=== PATIENT | male | born 1960 | race Caucasian/White ===

== ENCOUNTER 2016-08-17 07:55 | Observation (INO) | payer BC ==
[2016-08-17 08:33] LABS: Hematocrit 46 % (42-52); Hemoglobin 15.8 g/dl (14.0-18.0); Mean Corpuscular HGB Conc 34 g/dl (31-36); Mean Corpuscular Hemoglobin 31 pg (27-31); Mean Corpuscular Volume 90 fL (80-94); Mean Platelet Volume 8 um3 (7.4-10.4); Red Blood Count 5.13 10^6/ul (4.0-5.4); Red Cell Distribution Width 13 % (10.5-15); White Blood Count 4.3 10^3/ul (3.5-10.8)
[2016-08-17 08:44] LABS: Albumin 4.8 g/dL (3.2-5.2); BUN/Creatinine Ratio 16.7 (8-20); Calcium 9.4 mg/dL (8.6-10.3); EGFR African American 104.6 (>60); EGFR Non-African American 81.3 (>60); Globulin 2.5 g/dL (2-4); HDL Cholesterol 63.1 mg/dL; Potassium 3.9 mmol/L (3.5-5.0); Total Bilirubin 1.1 mg/dL (0.2-1.0); Total Protein 7.3 g/dL (6.4-8.9)
[2016-08-17 08:46] LABS: Troponin I 0.01 ng/mL (<0.04)
--- NOTE | 2016-08-17 08:53 | RAD ---
INDICATION: Aphasia COMPARISON: None. TECHNIQUE: Contiguous axial sections of the brain were obtained from the skull base to the vertex without contrast. FINDINGS: The ventricles, cisterns and sulci are within normal limits. There is mild periventricular and subcortical white matter hypoattenuation compatible with chronic microvascular disease. At the right posterior torrez radiata (image 20 of 32) there is a more focal 9 mm area of hypoattenuation. Otherwise the koehler-white matter differentiation is adequately maintained and there is no sulcal effacement. No significant focal abnormality or mass effect is present. There is no evidence for intracranial hemorrhage. No significant focal osseous abnormality is present. The visualized portion of the paranasal sinuses and mastoid air cells appear clear. IMPRESSION: CT findings are most compatible with microvascular disease as described in more detail above. If the patient is exhibiting focal neurologic deficit then superior characterization can be made with MRI of the brain.
--- NOTE | 2016-08-17 08:56 | RAD ---
INDICATION: Dysphasia COMPARISON: Chest x-ray dated May 11, 2005 TECHNIQUE: Single AP portable view of the chest was obtained. FINDINGS: Image quality is compromised due to the relative inferiority of a portable chest x-ray. The heart and mediastinum exhibit normal size and contour. The lungs are grossly clear. There is no evidence of a large pleural effusion. Visualized bones are normal for the patient's age. IMPRESSION: No radiographic evidence for acute cardiopulmonary abnormality on this portable chest x-ray.
[2016-08-17] MEDS ORDERED: Aspirin EC TAB* 325 MG PO ONE (11:02)
[2016-08-17] MEDS ORDERED: Iohexol 350* (CONTRAST) 500 ML MDV IV ONE (12:05)
--- NOTE | 2016-08-17 13:38 | RAD ---
CPT II: CPT II Codes: 3100F INDICATION: Expressive aphasia COMPARISON: CT of the brain dated August 17, 2016 TECHNIQUE: A CT angiogram of the head and neck was performed with 80 cc of Omnipaque 350. Contiguous axial sections were obtained from the thoracic inlet through the pamunkey of [place]. Images were reconstructed in the sagittal, coronal planes and in a 3-D volume rendered format. The distal cervical internal carotid artery diameter is used as the denominater for stenosis measurement. CTA NECK: The common and internal carotid arteries are patent without hemodynamically significant stenosis. Right: Just below the right carotid bulb the common carotid artery measures 6 mm in diameter and above the bifurcation the right internal carotid artery measures 7 mm in diameter indicating no significant stenosis. Incidentally noted is mild widening of the right carotid bulb up to 9 mm in short axis diameter. Left: Just below the bifurcation the left common carotid artery measures 5 mm in diameter and beyond the bifurcation the internal carotid artery measures 6 mm in diameter indicating no significant stenosis. There is widening of the carotid bulb up to 9 mm in short axis diameter. The vertebral arteries are patent without gross abnormality. The right vertebral artery is dominant. CTA of the brain: The internal carotid, anterior and middle cerebral arteries appear are patent without high grade stenosis or occlusion. The vertebral, basilar and posterior cerebral arteries appear patent without high grade stenosis or occlusion. The pamunkey of [place] is complete with bilateral posterior communicating arteries identified. No focal luminal filling defect, aneurysm or vascular malformation is seen. IMPRESSION: 1. No acute filling defect, high-grade stenosis or other acute abnormality involving the arteries of the head and neck. 2. Incidentally noted is mild widening of the left greater than right carotid bulbs which is of uncertain clinical significance.
--- NOTE | 2016-08-17 15:44 | HP ---
ADMISSION HISTORY AND PHYSICAL: DATE OF ADMISSION: 08/17/16 PRIMARY CARE PROVIDER: Dr. Matheus Ramirez ADMITTING PROVIDER: SELENE Beavers SUPERVISING PHYSICIAN: Sherlyn Jasmine MD.* (DICTATED BY SELENE BEAVERS) CONSULTING NEUROLOGIST: Aura Chaves MD CHIEF COMPLAINT: Right facial numbness and garbled speech. HISTORY OF PRESENT ILLNESS: This is an otherwise healthy 55-year-old gentleman who had a sudden onset of right facial numbness and garbled speech early this morning. 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 He was drinking some tea from a travel mug and found that he kept losing tea down the front of his shirt. He attempted to speak with the front window cashier, who noted that his speech was garbled. The patient denied any associated confusion. His students arrived several minutes later and stated that his speech was still garbled. No notable facial weakness. The patient denied any associated numbness, tingling, or weakness in any of his extremities. He did not trip, stumble, fall, or have associated headache or vision changes. The patient is an avid athlete, working out 5 days a week. He has had no history of similar symptoms. No history of migraine headaches. He has no family history of clotting or bleeding disorders or other heart disease or stroke. The patient reports his symptoms lasted approximately 20 to 30 minutes and he is asymptomatic at this time. About an hour ago, he did have a fleeting sensation of numbness in his right jaw region again, but no associated speech changes and his symptoms did not last any significant length of time. PAST MEDICAL HISTORY: None. PAST SURGICAL HISTORY: T12 kyphoplasty. HOME MEDICATIONS: Vitamin supplements, otherwise none. FAMILY HISTORY: The patient's mother is alive and well. Father of complications of asbestosis. Denies any family history of bleeding or clotting disorders, heart disease or stroke. 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 He has a disabled daughter who is currently attending college at [employer] and his is living with her to provide full-time care at the moment. Denies any smoking history and rare alcohol consumption. REVIEW OF SYSTEMS: All negative as noted above in HPI. PHYSICAL EXAMINATION GENERAL: This is an extremely pleasant 55-year-old gentleman lying comfortably on a hospital bed in no acute distress. INITIAL VITAL SIGNS: Temperature 97.6 degrees Fahrenheit, pulse 53 beats per minute, respiratory rate 15 per minute, oxygen saturation 100% on room air, and blood pressure 142/86 mmHg. HEENT: Head is normocephalic, atraumatic, with moist mucous membranes. NECK: Neck is free of lymphadenopathy and supple. No JVD appreciated. RESPIRATORY: Lungs are clear to auscultation without wheezes, crackles, or rhonchi. CARDIOVASCULAR: Heart has a regular rate and rhythm without murmurs, rubs, or gallops. ABDOMEN: Abdomen is soft and nontender to palpation. NEUROLOGIC: Cranial nerves II through XII are intact. Strength in all 4 extremities is 5/5. Romberg negative. Normal [id number] stress testing and rapid alternating movements. Sensation is grossly intact. PSYCH: The patient is alert and appropriately oriented. LABORATORY EVALUATION: CBC shows a white blood cell count of 4300, hemoglobin 15.8 g/dL, and a platelet count of 181,000. INR is 0.98. Comprehensive metabolic panel shows normal sodium of 137 mmol/L, potassium 3.9 mmol/L, BUN 16 , creatinine is 0.96. Random glucose of 104 mg/dL. Transaminases and total bilirubin are within normal limits. Troponin negative at 0.01. Total cholesterol 161, triglycerides 50, LDL 88, and HDL of 63. IMAGING: EKG shows a normal sinus rhythm, somewhat large T waves in lateral precordial leads, but this is consistent with his last EKG from 2011. No other ischemic changes appreciated. CT of the brain shows some evidence of microvascular disease, but no other acute findings. There is an area of hypoattenuation in the right posterior torrez radiata that appears to be more focal than the other regions indicated. Chest x-ray shows no acute disease. ASSESSMENT AND PLAN: This is an otherwise healthy and extremely athletic 55- year- old gentleman who presents with sudden onset of right facial numbness and garbled speech. He is being admitted to observation status for concern of a transient ischemic attack. 1. Transient ischemic attack - the patient's initial CT is negative for any acute findings, but does show some evidence of perhaps microvascular disease, which is surprising given his level of fitness. The patient received an aspirin and will be continued on daily 81 mg at this time and initiate a statin. We will check a fasting lipid panel tomorrow morning. Transthoracic echocardiogram has been ordered along with a CTA of the head and neck and MRI of the brain. Neurologist, Dr. Chaves, has been consulted and will evaluate the patient later. He is currently asymptomatic. 2. Code status. The patient is a full code. 3. Healthcare proxy is his . 4. DVT prophylaxis. The patient is at low to moderate risk for DVT with concern for acute neurologic deficit. We will avoid any chemical prophylaxis at this time, but we will order SCDs during his hospital stay. Anticipate discharge tomorrow. SELENE BEAVERS CC: Dr. Matheus Ramirez* [id number]/[facility] #: [id number] BERT
[2016-08-17] MEDS: Atorvastatin* 40 MG TAB PO SCH (17:15)
--- NOTE | 2016-08-17 18:15 | PN ---
Hospitalist Progress Note HOSPITALIST ADDENDUM Case reviewed and d/w Asael MORTON. Mr. Goins is a 55yo healthy M who presented to ED with right facial weakness, slurred speech. Labs, EKG, CT brain reviewed. Plan for Neuro consult and TIA w/u. Agree with current management.
--- NOTE | 2016-08-17 23:39 | CONS ---
CC: Matheus Ramirez MD NEUROLOGY CONSULTATION: DATE OF CONSULT: 08/17/16 LOCATION: The patient is an inpatient. PRIMARY CARE PHYSICIAN: Matheus Ramirez MD REQUESTING PROVIDER: Dr. Avila in the emergency department. REASON FOR CONSULT: Possible TIA. HISTORY OF PRESENT ILLNESS: Niranjan Goins is a 55-year-old healthy man on no medications who was in his usual state of health until approximately 6:40 this morning when he was driving to [place] and noticed that the right lower face felt numb as though he has had Novocain injected. He was also dribbling tea that he was drinking from a travel mug from the right corner of his mouth. This symptom lasted approximately 10 or 15 minutes and when he arrived at [place], he tried to say good morning to the front desk manager and the words did not come out correctly. 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 She was present during my evaluation and described his speech as sometimes nonsense speech that was completely garbled and other times it appeared that he was trying to speak and nothing was coming out. He was fully aware during this episode and frustrated and anxious about his symptoms. His speech returned to normal and he was able to recite the alphabet and count to 20, but as he and his student were googling his symptoms, they became concerned about stroke and she brought him to the emergency department. He denies any focal weakness, vertigo, tingling, or vision changes with this episode. Around noon today, he had recurrence of right lower facial numbness, but in a bigger area which encompassed beneath his jaw on the right and somewhat into the cheek. This lasted for approximately 10 or 15 minutes and he had no speech difficulties during this time. He has never had similar symptoms in the past. Once he got to the emergency department, he did develop somewhat of a headache, which he describes as being all over his head and involving his neck as well. There were no migrainous features to his headache and he specifically denies any photophobia, ponophobia , nausea, or vomiting. This headache resolved without any intervention and he attributes it to being anxious about his symptoms. He does not typically get headaches. PAST MEDICAL HISTORY: No significant history. PAST SURGICAL HISTORY: T12 kyphoplasty. HOME MEDICATIONS: Vitamins. FAMILY HISTORY: There is no history of heart disease or stroke in his family. SOCIAL HISTORY: He is a nonsmoker, nondrinker, and does not use any illicit drugs. 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 REVIEW OF SYSTEMS: Otherwise negative aside from the HPI. PHYSICAL EXAMINATION: Vital Signs: Temperature 97.4, blood pressure 96/67. Blood pressure was 142/86 upon his arrival. Heart rate is 55 and oxygen saturation is 99% on room air. On general examination, he is a thin, well-appearing man, in no acute distress. Heart revealed a regular rate and rhythm with no murmurs, rubs, or gallops. Lungs are clear to auscultation bilaterally. There are no carotid bruits. On neurologic testing, his speech is clear without any dysarthria or aphasia. He is able to describe the [employer] picture accurately. Reading and naming is intact. He is fully awake, alert and oriented. On cranial nerve testing, pupils were equal, round, and reactive from 4 to 2 mm bilaterally. The fundi are benign. Versions were full without nystagmus. Visual sosa are full to confrontation. Facial sensation and musculature is full and symmetric. Hearing is intact to finger rub. The palate elevates symmetrically and the tongue is midline. Shoulder shrug is full and symmetric. On motor testing, there is normal bulk and tone in the upper and lower extremities. Strength is full both proximally and distally. There is no pronator drift. Sensation is intact to light touch and temperature in the upper and lower extremities. There is no ataxia on oxzdxy-nk-eaqt and heel-to- crawford testing. Reflexes are 2+ in the upper and lower extremities with downgoing toes bilaterally. Romberg testing is negative. His gait is narrow based and stable. He is able to heel toe and tandem walk. LABORATORY DATA/DIAGNOSTIC STUDIES: Laboratory studies reviewed, include a CMP that was notable for glucose of 112 at 8 o'clock this morning and a total bilirubin of 1.10. Cholesterol panel shows triglycerides of 50, total cholesterol 161, LDL of 88, and HDL of 63.1. CBC was essentially unremarkable and coagulation studies were normal. Brain CT was personally reviewed and to my eye, it was essentially normal, though the formal interpretation was that there were some mild small vessel ischemic changes and potentially an area of greater hypodensity in the right posterior torrez radiata. CT angiogram of the head and neck was also personally reviewed and shows no evidence of atherosclerosis, stenosis or occlusion. Formal report mentions some widening (mild) of the carotid bulbs bilaterally of uncertain clinical significance. IMPRESSION: Niranjan Goins is a 55-year-old healthy man who presented with sudden and transient symptoms of right lower facial numbness as well as aphasia , which may have been primarily an expressive aphasia but this is not entirely clear by the description. He then had a recurrent episode of lower right facial numbness once here at the hospital, but this self-resolved. The differential for these transient neurologic symptoms would include transient ischemic attack, migraine headache as well as seizure. The patient has no significant risk factors for any of these and does not endorse a past history of migraine headaches or previous aura symptoms such as a typical visual aura. Furthermore, he was fully aware during the episode, making seizure less likely as well. He is currently undergoing a workup for transient ischemic attack and thus far his workup has included a CT of the brain as well as CTA of the head and neck, which has been negative. He received an aspirin in the emergency department and will be continued on 81 mg at this time. He was also started a statin given that his LDL is greater than 70. Transthoracic echocardiogram is pending and the patient will continue to be monitored on telemetry for any signs of paroxysmal atrial fibrillation. If the above testing is unremarkable, as an outpatient one may want to consider an implantable loop recorder versus hypercoagulable workup in this otherwise healthy patient without any significant risk factors for transient ischemic attack or stroke. He should also have MRI of the brain. Thank you for this consultation. I will follow up on the patient's testing tomorrow. [id number]/[facility] #: [id number] BERT
[2016-08-18] MEDS ORDERED: Aspirin EC Low Dose* 81 MG TAB.EC PO SCH (09:00)
--- NOTE | 2016-08-18 14:13 | PN ---
Subjective Date of Service: 08/18/16 Interval History: Patient reports he has been back to his baseline since before he arrived to the ED and has not sears d a return of symptoms. He reports he has what he thinks was an abscess on his right upper gum starting 1-2 weeks ago and popped last night and drained some fluid. He denies fever or chills. mild tenderness to area, today feeling better. No family hx of clotting disorders or CVA that he is aware of. Objective Active Medications: Aspirin (Aspirin Ec Low Dose*) 81 mg PO DAILY [facility] Last Admin: 08/18/16 08:14 Dose: 81 mg Atorvastatin Calcium (Lipitor*) 40 mg PO 1700 [facility] Last Admin: 08/17/16 17:15 Dose: 40 mg Vital Signs 08/17/16 08/17/16 08/17/16 15:20 19:34 20:00 Temperature 97.4 F 97.8 F Pulse Rate 55 56 Respiratory 16 14 Rate Blood Pressure 96/67 107/72 (mmHg) O2 Sat by Pulse 99 97 97 Oximetry 08/17/16 08/18/16 08/18/16 23:58 03:33 06:46 Temperature 98.1 F 97.8 F Pulse Rate 51 46 Respiratory 16 16 16 Rate Blood Pressure 100/63 95/57 (mmHg) O2 Sat by Pulse 97 98 Oximetry 08/18/16 08/18/16 07:26 11:15 Temperature 97.8 F 97.5 F Pulse Rate 52 52 Respiratory 16 16 Rate Blood Pressure 102/62 99/64 (mmHg) O2 Sat by Pulse 96 99 Oximetry Oxygen Devices in Use Now: None Appearance: healthy appearing 55 yo male sitting up in bed in [facility]. A+O x3 Eyes: No Scleral Icterus Ears/Nose/Mouth/Throat: - - upper right gum above canine toothe is a small .5 cm area of erythema, soft, slightly tender, no exudate or abscess noted Neck: NL Appearance and Movements; NL JVP Respiratory: Symmetrical Chest Expansion and Respiratory Effort, Clear to Auscultation Cardiovascular: NL Sounds; No Murmurs; No JVD, RRR, No Edema Abdominal: NL Sounds; No Tenderness; No Distention Extremities: No Edema, No Clubbing, Cyanosis Skin: No Rash or Ulcers, No Nodules or Sclerosis Neurological: Alert and Oriented x 3, NL Sensation, NL Gait, NL Muscle Strength and Tone, - - no pronator drift, tongue is midline, 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 Lines/Tubes/Other Access: Clean, Dry and Intact Peripheral IV Result Diagrams: 08/17/16 08:09 08/17/16 08:09 Assess/Plan/Problems-Billing Assessment: Mr. rutherford is a 55 yo male with no significant hx who presented with sudden onset of right facial numbness and garbled speech admitted for TIA - Patient Problems (1) TIA (transient ischemic attack) Comment: Pts symptoms resolved quickly after initial episode yesterday and have not returned. TTE with positive bubble study for PFO CT Brain finding compatible with microvascular disease MRI Brain showing no acute infarct but is showing small vessel disease CTA Head/Neck no acute filling defect, high-grade stenosis or other acute abnormal pathology - Due to found PFO, plan for Doppler b/l LE, CT pelvis venogram Dr. Chaves, neurology following, plan for ASA 325 mg daily for now. (2) Tooth abscess Comment: - right upper above canine tooth - appears to be resolving. Afebrile, no leukocytosis. No abx recommended at this time. Start chlorhexidine mouthwash. F/u with dentist (3) Full code status (4) DVT prophylaxis Comment: HSQ Status and Disposition: OBV for TIA work-up requires further testing due to found PFO, Plan for DC tomorrow.
[2016-08-18 14:52] LABS: Urine Bilirubin Negative (Negative); Urine Glucose Negative (Negative); Urine Nitrite Negative (Negative)
--- NOTE | 2016-08-18 16:15 | RAD ---
HISTORY: 30 minutes of facial numbness and slurred speech the previous day COMPARISONS: CTA of the head and neck and CT of the brain from the previous day TECHNIQUE: The following sequences were obtained of the head: Sagittal T1-weighted images, axial T2-weighted images, axial FLAIR images, axial susceptibility weighted images, axial T1-weighted images. Additionally, axial diffusion-weighted images were obtained with calculated apparent diffusion coefficients.. FINDINGS: HEMORRHAGE/INFARCT: There is no hemorrhage or acute infarct. MASSES/SHIFT: There is no mass or shift. EXTRA-AXIAL SPACES/MENINGES: There are no extra-axial fluid collections. SULCI AND VENTRICLES: The sulci and ventricles are normal in size and position for the patient's stated age. CEREBRUM: There is a mild increased T2 signal in the periventricular and subcortical white matter tracts, the largest at the posterior right parietal lobe measuring 7 mm in diameter (image 20 of 32). The koehler-white matter differentiation is otherwise adequately maintained and there are no other focal masses or lesions. BRAINSTEM: There are no focal parenchymal abnormalities. CEREBELLUM: There are no focal parenchymal abnormalities. The cerebellar tonsils are normal in size and position. SELLA: The sella is normal. PINEAL: The pineal region is clear. CP ANGLE/TEMPORAL BONES: The labyrinthine structures are grossly normal. VESSELS: Normal flow-voids are noted within the visualized vertebral vasculature. DIFFUSION ABNORMALITIES: There are no diffusion abnormalities. PARANASAL SINUSES/MASTOIDS: The paranasal sinuses are clear. ORBITS: The orbits are unremarkable. BONES AND SOFT TISSUE: No bone or soft tissue abnormalities are noted. IMPRESSION: MRI FINDINGS DESCRIBED ABOVE ARE MOST COMPATIBLE WITH SUBCORTICAL AND PERIVENTRICULAR MICROVASCULAR DISEASE. LESS LIKELY ETIOLOGY INCLUDES DEMYELINATING DISEASE. IF THE LATTER CORRELATES WITH THE PATIENT'S CLINICAL PRESENTATION THEN FURTHER CHARACTERIZATION CAN BE MADE WITH CONTRAST-ENHANCED MRI OF THE BRAIN.
[2016-08-18] MEDS ORDERED: Chlorhexidine MOUTHWASH 0.12%* 15 ML UDC SWISH SPIT SCH (17:00)
[2016-08-18] MEDS: Atorvastatin* 40 MG TAB PO SCH (17:02)
[2016-08-18] MEDS ORDERED: Iohexol 300* (CONTRAST) 10 ML SDV IV SCH (17:03)
--- NOTE | 2016-08-18 19:05 | RAD ---
HISTORY: Transient ischemic attack and a patient with patent foramina ovale. TECHNIQUE: Multiple transverse and longitudinal ultrasound images were obtained of the veins of the bilateral lower extremities using grayscale, color Doppler, and spectral Doppler imaging with and without compression and with augmentation. FINDINGS: VEINS: The common femoral vein, deep femoral vein, femoral vein and popliteal vein are compressible throughout their course, with normal flow on color Doppler imaging and normal response to augmentation on spectral Doppler imaging. SOFT TISSUES: Grossly normal. No large popliteal fossa cyst was identified. IMPRESSION: No sonographic evidence of deep vein thrombosis.
--- NOTE | 2016-08-18 20:10 | RAD ---
CLINICAL HISTORY: Clinical concern for DVT in a patient with patent foramen ovale COMPARISON: None TECHNIQUE: Multiple contiguous axial CT scans were obtained of the abdomen and pelvis after the administration of intravenous contrast. Coronal and sagittal multiplanar reformations are submitted for review. Patient received 100 mL Omnipaque 300. FINDINGS: The visualized portions of the solid abdominal organs are grossly normal in appearance. The visualized portions of the kidneys are normal in appearance without focal mass, calcification or signs of hydronephrosis. The visualized segments of small and large bowel are not distended. There is no gross retroperitoneal or mesenteric lymphadenopathy in the visualized portions of the abdomen. Coarse calcification is noted the prostate gland. Incidentally noted are vessel ectomy surgical clips. The lower abdominal aorta is normal in course and diameter. The arterial and venous structures of the pelvis and upper thighs are normal in size and morphology. There is no definite filling defect of the bilateral iliac veins or visualized lower IVC. Degenerative changes of the lower lumbar spine includes loss of intervertebral disc height. . There are no sinister bone lesions in the visualized bones. IMPRESSION: Inadequate bolus timing thoroughly evaluates the iliac veins but there does not appear to be any obvious filling defect of the iliac veins or lower IVC. If there is strong clinical concern for pelvic DVT then MR venography is advised.
[2016-08-18] MEDS: Heparin VIAL(*) 5000 UNITS/ML VIAL (FIVE THOUSAND) SUBCUT SCH (20:23)
--- NOTE | 2016-08-18 22:20 | ED ---
Fre[facility] Rebecca, scribed for Faustino Avila MD on 08/17/16 at 0819 . Neurological HPI - HPI Summary HPI Summary: Pt is a 55 y/o M who presents to ED c/o lip numbness and slurred speech. Left lower lip numbness began suddenly at 0630 this morning, when pt noticed he "dribbled" his tea. Slurred speech began suddenly at 0700. Numbness lasted for 20 minutes and speech deficit lasted for 10 minutes. Guest states that "he was trying to talk to me and words weren't coming out and he looked really surprised." Then, he was "able to say something but it was garbled." Sx alleviated by spontaneous resolution, aggravated by nothing. All sx have currently resolved. Additionally c/o mild anxiety and diaphoresis. Denies bilateral UE or LE weakness, facial rash, facial droop, blurry vision, DIAZ, CP, SOB. States that this morning hadn't been particularly stressful, but he was anticipating a new bus trip about an hour away. Last physical was in July 2016. Reports that he has not eaten breakfast today, and that he had a full dinner last night. No PMHx hypoglycemia. No FHx TIA or HTN. FHx asbestosis ( father in 70's). Siblings have no health problems. SHx no smoking or drinking. Exercises 5x/week. - History of Current Complaint Stated Complaint: STROKE LIKE SYMPTOMS Time Seen by Provider: 08/17/16 07:58 Hx Obtained From: Patient Onset/Duration: Sudden Onset, Resolved Timing: Intermittent Episodes Lasting: - 10 minutes (speech), 20 minutes ( numbness) Current Severity: None Pain Intensity: 0 Pain Scale Used: 0-10 Numeric Character: Numbness/Tingling - left lower lip Aggravating: Nothing Alleviating: Spontanious Resolution Associated Signs and Symptoms: Positive: Impaired Speech - "garbled," resolved, Diaphoresis, Anxiety - mild. Negative: Headache, Weakness, Chest Pain, Shortness of Breath - Allergy/Home Medications Allergies/Adverse Reactions: Allergies Allergy/AdvReac Type Severity Reaction Status Date / Time No Known Allergies Allergy Unverified 12/29/12 09:01 PMH/Surg Hx/FS Hx/Imm Hx Previously Healthy: Yes Endocrine/Hematology History: Denies: Hx Diabetes, Hx Thyroid Disease Cardiovascular History: Denies: Hx Hypercholesterolemia, Hx Hypertension, Hx Peripheral Vascular Disease Musculoskeletal History: Denies: Hx Arthritis, Hx Rheumatoid Arthritis, Hx Osteoporosis Sensory History: Denies: Hx Cataracts, Hx Contacts or Glasses, Hx Glaucoma Opthamlomology History: Denies: Hx Cataracts, Hx Contacts or Glasses, Hx Glaucoma Neurological History: Denies: Hx Headaches, Hx Seizures, Hx Transient Ischemic Attacks (TIA) Psychiatric History: Denies: Hx Anxiety, Hx Depression - Surgical History Surgery Procedure, Year, and Place: T12 2004 Infectious Disease History: No Infectious Disease History: Denies: Traveled Outside the [place] in Last 30 Days - Family History Known Family History: Positive: Respiratory Disease - Asbestosis (father), Other - Negative for TIA Negative: Hypertension - Social History 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 Negative: Fever, Chills Negative: Blurred Vision, Erythema Negative: Sore Throat Negative: Chest Pain Negative: Shortness Of Breath, Cough Negative: Abdominal Pain, Vomiting, Nausea Negative: dysuria, hematuria Negative: Myalgia, Edema Negative: Rash Neurological: Other - Denies dizziness and slurred speech Positive: Numbness - Left lower lip, resolved, Slurred Speech - "Garbled," resolved. Negative: Headache, Weakness - UE or LE Positive: Anxious - mild All Other Systems Reviewed And Are Negative: Yes Physical Exam - Summary Physical Exam Summary: Constitutional: Well-developed, Well-nourished, Alert. (-) Distressed Skin: Warm, Dry HENT: Eyes: Conjunctiva normal Neck: Musculoskeletal ROM normal neck. (-) JVD, (-) Stridor, (-) Tracheal deviation Cardio: Rhythm regular, rate normal, Heart sounds normal; Intact distal pulses ; The pedal pulses are 2+ and symmetric. Radial pulses are 2+ and symmetric. (- ) Murmur Pulmonary/Chest wall: Effort normal. (-) Respiratory distress, (-) Wheezes, (-) Rales Abd: Soft. (-) Tenderness, (-) Distension, (-) Guarding, (-) Rebound Musculoskeletal: (-) Edema Lymph: (-) Cervical adenopathy Neuro: Alert, Oriented x3, Strength normal, Cranial nerves II-XII are grossly intact. (-) Dysmetria, (-) Nystagmus, (-) Ataxia by finger to nose testing, (-) Sensory deficit. Psych: Mood and affect Normal Triage Information Reviewed: Yes Vital Signs Reviewed: Yes Diagnostics - Laboratory Result Diagrams: 08/17/16 08:09 08/17/16 08:09 Lab Statement: Any lab studies that have been ordered have been reviewed, and results considered in the medical decision making process. - Radiology CXR Xray Interpretation: No Acute Changes - No radiographic evidence for acute cardiopulmonary abnormality on this portable chest x-ray. Radiology Interpretation Completed By: Radiologist - CT Brain CT CT Interpretation Completed By: Radiologist - CT findings are most compatible with microvascular disease as described in more detail above. If the patient is exhibiting focal neurologic deficit then superior characterization can be made with MRI of the brain. - EKG 0801 Cardiac Rate: Bradycardia - 52 bpm EKG Rhythm: Sinus Bradycardia EKG Interpretation: No STEMI Re-Evaluation - Re-Evaluation First Eval Re-Evaluation Time: 09:36 Change: Improved Comment: Discussed admission plan with pt. Course/Dx - Course Assessment/Plan: Pt is a 55 y/o M with a CC of lip numbness and speech aphasia. Both sx are resolved, with numbness lasting 20 minutes and aphasia lasting 10 minutes. Additionally c/o mild anxiety and diaphoresis. Denies bilateral UE or LE weakness, facial rash, facial droop, blurry vision, DIAZ, CP, SOB. CXR reveals no acute findings. CT brain reveals: "CT findings are most compatible with microvascular disease as described in more detail above. If the patient is exhibiting focal neurologic deficit then superior characterization can be made with MRI of the brain." Discussed care of pt with Dr. Steiner, hospitalist, who accepts pt for admission. Pt will be admitted with a dx of TIA. - Diagnoses Provider Diagnoses: TIA (transient ischemic attack) - Physician Notifications Discussed Care of Patient With: Dr. Steiner, who accepts pt for admission. Dr. Chaves, neurologist, at 0940 who will evaluate pt in the ED. Time Discussed With Above Provider: 09:36 Discharge - Discharge Plan Condition: Good Disposition: ADMITTED TO [facility] documentation as recorded by the scribe, DiFabio,Marni accurately reflects the service I personally performed and the decisions made by me, Faustino Avila MD.
--- NOTE | 2016-08-18 23:15 | PN ---
PROGRESS REPORT: DATE OF SERVICE: 08/18/16 - ROOM #434 OVERNIGHT EVENTS: Mr. Goins has experienced no recurrence of right facial numbness or difficulty with his speech. He underwent echocardiogram today as well as MRI of the brain. 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 MEDICATIONS: 1. Aspirin 325 mg daily. 2. Lipitor 40 mg daily. 3. Heparin 5000 units q.12 hours. PHYSICAL EXAMINATION:Vital Signs: Temperature 97.6, blood pressure 106/65, heart rate 47, oxygen saturation 98%. On general examination, he is in no acute distress. His speech is fluent without aphasia or dysarthria. Versions are full without nystagmus. Visual sosa are full to confrontation. Facial musculature and sensation is full and symmetric. Tongue protrudes in the midline and the palate elevates symmetrically. On motor examination, there is full strength in the upper and lower extremities with no pronator drift. Sensation is intact to light touch in the upper and lower extremities. There is no ataxia on [id number]. His gait is narrow based and stable. DATA: Cholesterol studies were redone today and show triglycerides of 49, total cholesterol of 122, LDL of 62, and HDL of 50. Transthoracic echocardiogram showed ejection fraction of 50% to 55%, mildly dilated right atrium. There is a patent foramen ovale demonstrated by bubble study. There is also evidence of an atrial septal aneurysm. MRI of the brain was personally reviewed and shows a few punctate areas of hyperintensity and the bilateral cerebral white matter with the largest area being in the right parietal region. These do not have the typical distribution of demyelinating disease and appear more consistent with small vessel ischemic changes. There are no acute changes on DWI. IMPRESSION: Niranjan Goins is a 55-year-old healthy man who presented with transient episode of right facial numbness as well as aphasia. His workup has been notable for a patent foramen ovale on echocardiogram and evidence of small vessel ischemic disease on his MRI, but no acute changes. Given the presence of the patent foramen ovale, he will undergo lower extremity Dopplers today. If those are negative, he should undergo CT venogram of the pelvis to assess for any thrombus in the deep veins of the pelvis. If both these studies are negative, he can be discharged on his full dose aspirin to follow up with me as an outpatient. As an outpatient, I want to obtain a hypercoagulable workup as well as followup MRI with gadolinium to ensure none of his abnormalities are enhancing. [id number]/[facility] #: [id number] BERT
[2016-08-19] MEDS: Heparin VIAL(*) 5000 UNITS/ML VIAL (FIVE THOUSAND) SUBCUT SCH (07:44)
[2016-08-19 07:59] VITALS: BP 102/60
[2016-08-19] MEDS ORDERED: Aspirin EC TAB* 325 MG PO SCH (09:00)
--- NOTE | 2016-08-19 10:21 | PN ---
Subjective Date of Service: 08/19/16 Interval History: pt reports "I feel great" he is at his baseline no return of symptoms. Reviewed discharge instructions with pt. Objective Active Medications: Aspirin (Ecotrin Ec Tab*) 325 mg PO DAILY [facility] Last Admin: 08/19/16 07:44 Dose: 325 mg Atorvastatin Calcium (Lipitor*) 40 mg PO 1700 [facility] Last Admin: 08/18/16 17:02 Dose: 40 mg Heparin Sodium (Porcine) (Heparin Vial(*)) 5,000 units SUBCUT Q12HR [facility] Last Admin: 08/19/16 07:44 Dose: 5,000 units Iohexol (Omnipaque 300* (Contrast)) 99 ml IV ONCE [facility] Stop: 08/20/16 23:59 Last Admin: 08/18/16 18:06 Dose: 99 ml Vital Signs 08/18/16 08/18/16 08/18/16 11:15 16:08 20:00 Temperature 97.5 F 97.6 F Pulse Rate 52 47 Respiratory 16 14 16 Rate Blood Pressure 99/64 106/65 (mmHg) O2 Sat by Pulse 99 98 Oximetry 08/18/16 08/18/16 08/19/16 20:51 23:15 03:20 Temperature 97.2 F 97.6 F 98.7 F Pulse Rate 49 45 53 Respiratory 14 16 16 Rate Blood Pressure 107/61 106/62 98/57 (mmHg) O2 Sat by Pulse 98 98 98 Oximetry 08/19/16 08/19/16 07:31 08:00 Temperature 97.7 F Pulse Rate 48 Respiratory 14 Rate Blood Pressure 102/60 (mmHg) O2 Sat by Pulse 97 97 Oximetry Oxygen Devices in Use Now: None Appearance: A+O x3 in NAD. healthy appearing 55 yo male Eyes: No Scleral Icterus, PERRLA Ears/Nose/Mouth/Throat: NL Teeth, Lips, Gums, Mucous Membranes Moist Neck: NL Appearance and Movements; NL JVP Respiratory: Symmetrical Chest Expansion and Respiratory Effort, Clear to Auscultation Cardiovascular: NL Sounds; No Murmurs; No JVD, RRR, No Edema Abdominal: NL Sounds; No Tenderness; No Distention Lymphatic: No Cervical Adenopathy Extremities: No Edema, No Clubbing, Cyanosis Skin: No Rash or Ulcers, No Nodules or Sclerosis Neurological: Alert and Oriented x 3, NL Sensation, NL Gait, NL Muscle Strength and Tone Lines/Tubes/Other Access: Clean, Dry and Intact Peripheral IV Nutrition: Taking PO's Result Diagrams: 08/17/16 08:09 08/17/16 08:09 Assess/Plan/Problems-Billing Assessment: Mr. rutherford is a 55 yo male with no significant hx who presented with sudden onset of right facial numbness and garbled speech admitted for TIA - Patient Problems (1) TIA (transient ischemic attack) Comment: Pts symptoms resolved quickly after initial episode yesterday and have not returned. TTE with positive bubble study for PFO CT Brain finding compatible with microvascular disease MRI Brain showing no acute infarct but is showing small vessel disease CTA Head/Neck no acute filling defect, high-grade stenosis or other acute abnormal pathology - Due to found PFO, Doppler b/l LE negative, CT pelvis venogram negative for DVTs Dr. Chaves, neurology following, plan for ASA 325 mg daily for now and f/u with Dr. Chaves as outpt (2) Tooth abscess Comment: - improving - right upper above canine tooth - appears to be resolving. Afebrile, no leukocytosis. No abx recommended at this time. continue chlorhexidine mouthwash. F/u with dentist (3) Full code status (4) DVT prophylaxis Comment: HSQ Status and Disposition: OBV for TIA found PFO, Plan for DC today
--- NOTE | 2016-08-19 22:47 | DS ---
DISCHARGE SUMMARY: DATE OF ADMISSION: 08/17/16 DATE OF DISCHARGE: 08/19/16 PROVIDER: Reagan Michaels NP ATTENDING PHYSICIAN: Dr. Mars* (report dictated by Reagan Michaels NP). PRIMARY CARE PROVIDER: Dr. Matheus Ramirez. NEUROLOGIST: Dr. Chaves. PRIMARY DIAGNOSES: 1. Transient ischemic attack. 2. Newly found patent foramen ovale. HISTORY OF PRESENT ILLNESS AND HOSPITAL COURSE: Please see history and physical by SELENE Ahuja for full admission details, but in summary, this is a healthy 55- year-old male who presented to the emergency department on 05/23 with a report of acute onset of right facial numbness and garbled speech earlier in the day. 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 He denied any confusion, headache, extremity weakness, numbness, or tingling. No noted facial weakness. Reported he had a steady gait. These symptoms lasted approximately 20 to 30 minutes and then resolved. He decided to come to the emergency department for evaluation. The patient was admitted to the hospitalist service for TIA/CVA workup. The patient underwent a brain CT, which reading "CT findings are most compatible with microvascular disease." As well, the patient underwent a brain MRI, which showed "MRI findings described above are most compatible with subcortical and periventricular microvascular disease, less likely etiology includes demyelinating disease. If the latter correlates with the patient's clinical presentation, then further characterization can be made with the contrast enhanced MRI of the brain." The patient has been followed by Dr. Chaves, neurologist, who reviewed the MRI. He does not think that this is demyelinating disease, but does appear to be small vessel disease and with no acute findings of stroke. The patient underwent an transthoracic echocardiogram , which showed patent foramen ovale, just need with the corporate compliance manager's report that were "large bubbles noted". He reports that there is no surgical intervention and that the neurologist should determine if he should be on full dose aspirin versus anticoagulation. The patient then underwent a CT venogram of his pelvis, which was negative for DVTs as well as lower extremity Dopplers, which were negative for DVTs. The plan is to send the patient on a full dose aspirin of 325. Dr. Chaves will continue to follow the patient as an outpatient and schedule him for outpatient MRI. He will undergo hypercoagulable workup. It is okay for the patient to return to exercise and to normal routine. The patient was monitored on telemetry throughout hospitalization with no noted atrial fibrillation. The patient should be setup for Holter monitoring and I discussed with him that it is possible he could benefit from a loop monitor, the Holter monitor was negative. This should be discussed with the primary and the neurologist to determine the best course for the patient. DISCHARGE PLAN: 1. The patient is stable for discharge home. 2. Dr. Chaves's office will call the patient with followup appointment. 3. The patient should follow up with Dr. Matheus Ramirez within 3 to 5 days. 4. May return to daily routine. TIME SPENT: Approximately 60 minutes were spent on this discharge. REAGAN MICHAELS NP CC: Dr. Matheus Ramirez * [id number]/[facility] #: [id number] MTDJerri
== END 2016-08-19 11:33 | disposition home or self-care (01) ==
LOC: ED 07:55 → MEDTELE 09:35
PROVIDERS: ADMIT Internal Medicine; ATTEND Internal Medicine
DX: G45.9 Transient cerebral ischemic attack, unspecified (principal); Q21.1 Atrial septal defect; K04.7 Periapical abscess without sinus; R00.1 Bradycardia, unspecified; I34.0 Nonrheumatic mitral (valve) insufficiency; Z79.899 Other long term (current) drug therapy; R20.0 Anesthesia of skin; R29.810 Facial weakness
CPT/HCPCS: 36415; 70450; 70496; 70498; 70551; 71010; 72193; 80053; 80061; 81003; 83605; 84484; 85025; 85610; 85730; 86850; 86900; 86901; 93005; 93306; 93970; 96372; 99283; A9270-GY; G0378; J1644; Q9967